=== PATIENT | male | born 1950 | race Caucasian/White ===

== ENCOUNTER 2021-01-20 04:24 | Emergency (ER) | payer MEDICARE, BC ==
--- NOTE | 2021-01-20 04:33 | EDM.PDOC ---
ED HPI GENERAL MEDICAL PROBLEM - General Chief Complaint: General Stated Complaint: POSSIBLE LYMES? Time Seen by Provider: 01/20/21 04:30 Source of Information: Reports: Patient History Limitations: Reports: No Limitations - History of Present Illness INITIAL COMMENTS - FREE TEXT/NARRATIVE: Misael is a 70-year-old male presenting to the ED with concern that he may have contracted Lyme's disease. The patient pulled a tick off of his abdomen last week and did not think much of it until he started to develop multiple joint pains. He comes at 4 AM in the morning for evaluation of possible Lyme's disease. He has not had any fever or chills. There is been no rash except for the tick bit. We have no records of him as he is from [place], [place] and is up your [place]. Ports that since he remove the tick last has had increasing pain in both hips and now in the knees. He has had a history of Lyme's disease once before. He does have a sizable target lesion on his abdomen. He also is diabetic. He denies any fever, chills, cough or shortness of breath, nausea or vomiting, headache or neck ache. Bilateral Hip Pain Score (Numeric/FACES): 2 ED ROS GENERAL - Review of Systems Review Of Systems: See Below Constitutional: Reports: No Symptoms HEENT: Reports: No Symptoms Respiratory: Reports: No Symptoms Cardiovascular: Reports: No Symptoms Endocrine: Reports: No Symptoms GI/Abdominal: Reports: No Symptoms : Reports: No Symptoms Musculoskeletal: Reports: Joint Pain (Multiple joints), Joint Swelling (Multiple joints) Skin: Reports: Erythema (Abdomen due to a tick bite), Wound (Small round red region on his abdomen where a tick bite occurred last week) Neurological: Reports: No Symptoms Psychiatric: Reports: Anxiety Hematologic/Lymphatic: Reports: No Symptoms Immunologic: Reports: No Symptoms ED EXAM, GENERAL - Physical Exam Exam: See Below Exam Limited By: No Limitations General Appearance: Alert, Anxious GI/Abdominal: Other (3.2 cm erythema migrans lesion on the low abdomen at 8:00 from the umbilicus) Skin Exam: Wound/Incision (3.2 cm target lesion on the abdomen around the center of tick bite) Course - Vital Signs Last Recorded V/S: Last Vital Signs Temp 36.4 C 01/20/21 04:37 Pulse 87 01/20/21 04:37 Resp 20 01/20/21 04:37 BP 128/65 01/20/21 04:37 Pulse Ox 94 L 01/20/21 04:37 - Re-Assessments/Exams Free Text/Narrative Re-Assessment/Exam: 01/20/21 04:39 The patient does have erythema migrans on the abdomen where the tick bit him. He has a previous history of Lyme's disease and now is getting arthritis pain in both hips and both knees. We will initiate therapy with doxycycline 100 mg twice daily for 21 days to treat Lyme's. The patient is not from the area so doing a Lyme's send out test is probably not applicable. Departure - Departure Time of Disposition: 04:40 Disposition: Home, Self-Care 01 Clinical Impression: Acute Lyme disease, Erythema migrans (Lyme disease) - Discharge Information Instructions: Lyme Disease Referrals: Shraddha Mcmullen MD [Primary Care Provider] - Forms: ED Department Discharge Care Plan Goals: We will start you on doxycycline 100 mg twice daily for 21 days to treat Lyme's disease. While in endemic areas for Lyme's is advised to wear high DEET bug repellent to prevent them from attaching. Sepsis Event Note (ED) - Focused Exam Vital Signs: Vital Signs Temp Pulse Resp BP Pulse Ox 01/20/21 04:37 36.4 C 87 20 128/65 94 L - Problem List & Annotations (1) Acute Lyme disease SNOMED Code(s): 599232825 Code(s): A69.20 - LYME DISEASE, UNSPECIFIED Status: Acute Priority: Low Current Visit: Yes (2) Erythema migrans (Lyme disease) SNOMED Code(s): 69204077 Code(s): A69.20 - LYME DISEASE, UNSPECIFIED Status: Acute Priority: Low Current Visit: Yes - Problem List Review Problem List Initiated/Reviewed/Updated: Yes
== END 2021-01-20 04:48 | disposition home or self-care (01) ==
LOC: JP.ED 04:24
DX: A26.0 Cutaneous erysipeloid (principal)
CPT/HCPCS: 99283